=== PATIENT | male | born 1950 | race Caucasian/White ===

== ENCOUNTER 2019-01-03 12:30 | Emergency (ER) | payer MEDICARE ==
[~2019-01-03] VITALS: Ht 193 cm; Wt 74.5 kg
[2019-01-03 13:00] LABS: BASOPHILS # (AUTO) 0.13 x10^3/uL (0-0.1); BASOPHILS % (AUTO) 1 % (0-1); EOSINOPHILS # (AUTO) 0.23 x10^3/uL (0-0.4); EOSINOPHILS % (AUTO) 2 % (1-7); LYMPHOCYTES # (AUTO) 1.19 x10^3/uL (1-3.4); LYMPHOCYTES % (AUTO) 13 % (22-44); MD NO; MEAN CORPUSCULAR HEMOGLOBIN 30.9 pg (27.5-34.5); MEAN CORPUSCULAR HGB CONC 33.8 g/dL (33.2-36.2); MEAN CORPUSCULAR VOLUME 91.2 fL (81-97); MEAN PLATELET VOLUME 8.5 fL (7.4-10.4); MONOCYTES # (AUTO) 0.68 x10^3/uL (0.2-0.8); MONOCYTES % (AUTO) 7 % (2-9); NEUTROPHILS # (AUTO) 7.01 x10^3/uL (1.8-6.8); NEUTROPHILS % (AUTO) 76 % (42-75); PLATELET COUNT 218 x10^3/uL (130-400); RED BLOOD COUNT 4.56 x10^6/uL (4.38-5.82); RED CELL DISTRIBUTION WIDTH 13.8 % (9.4-14.8)
[2019-01-03] MEDS ORDERED: LORazepam 1MG TABLET PO ONE (13:00)
[2019-01-03 13:10] LABS: ANION GAP 8 mmol/L (5-15); CALCIUM 8.9 mg/dL (8.5-10.1); CHLORIDE 106 mmol/L (98-107); CREATININE 1.62 mg/dL (0.7-1.3)
--- NOTE | 2019-01-03 13:27 | NUR ---
CALLED FOR ROOM, NO ANSWER. UNABLE TO LOCATE IN LOBBY.
--- NOTE | 2019-01-03 13:30 | NUR ---
pt room to 25 from [facility]. gait steady.
[2019-01-03] MEDS ORDERED: LORazepam 1MG TABLET ONE (13:34)
--- NOTE | 2019-01-03 13:47 | NUR ---
first contact with pt. pt c/o anxiety since today's morning. pt stopped taking multiple meds about 4-5 days ago due to anxiety. pt aox4. resps even and unlabored. all monitors in place. call light within reach. edmd and pa at bedside to assess at this time.
[2019-01-03] MEDS ORDERED: VALS1TAB22 PO (13:52)
[2019-01-03] MEDS ORDERED: ATEN25TA PO (13:52)
[2019-01-03] MEDS ORDERED: ATOR-2 PO (13:53)
[2019-01-03] MEDS ORDERED: CLOP75TA PO (13:53)
[2019-01-03] MEDS ORDERED: TRAZ-137 PO (13:53)
--- NOTE | 2019-01-03 13:54 | NUR ---
pt medicated per emar for anxiety. pt tolerated well. pt aox4. resps even and unlabored. all monitors in place. call light within reach.
[2019-01-03 14:25] VITALS: BP 162/108
--- NOTE | 2019-01-03 14:29 | NUR ---
pt given dc instructions and script. pt educated regarding dc medication which is ativan. pt aox4. resps even and unlabored. pt's anxiety level reduced at dc. pt amb to dc with steady gait. no acute distress at dc.
== END 2019-01-03 14:27 | disposition home or self-care (01) ==
LOC: ED 13:45
DX: F43.9 Reaction to severe stress, unspecified (principal); F41.9 Anxiety disorder, unspecified; I10 Essential (primary) hypertension; I25.10 Atherosclerotic heart disease of native coronary artery without angina pectoris; F17.200 Nicotine dependence, unspecified, uncomplicated; I51.9 Heart disease, unspecified; Z79.899 Other long term (current) drug therapy
CPT/HCPCS: 36415; 80048; 85025; 93005; 99284

== ENCOUNTER 2019-01-05 22:42 | Emergency (ER) | payer MEDICARE ==
[~2019-01-05] VITALS: Ht 193 cm; Wt 73.8 kg
[~2019-01-05 22:42] MED LIST: ATEN25TA PO; ATOR-2 PO; CLOP75TA PO; TRAZ-137 PO; VALS1TAB22 PO
[2019-01-05 22:43] VITALS: BP 189/92
[2019-01-05] MEDS ORDERED: KETOROLAC 30 MG/1 ML ONE (23:26)
--- NOTE | 2019-01-05 23:28 | NUR ---
PT IN XRAY. DELAY IN MEDICATING
[2019-01-05] MEDS ORDERED: KETOROLAC 30 MG/1 ML IM ONE (23:30)
[2019-01-06 00:03] LABS: CULTURE INDICATED? NO; MICROSCOPIC AUTO
--- NOTE | 2019-01-06 00:33 | NUR ---
DC EDUCATION PROVIDED, PT DEMONSTRATES UNDERSTANDING. PT AMBULATED STEADILY TO DC WITH RN.
== END 2019-01-06 00:34 | disposition home or self-care (01) ==
LOC: ED 23:34
DX: S32.019A Unspecified fracture of first lumbar vertebra, initial encounter for closed fracture (principal); I25.10 Atherosclerotic heart disease of native coronary artery without angina pectoris; F17.200 Nicotine dependence, unspecified, uncomplicated; X58.XXXA Exposure to other specified factors, initial encounter; Y93.89 Activity, other specified; Y92.89 Other specified places as the place of occurrence of the external cause; Y99.8 Other external cause status
CPT/HCPCS: 72110; 81001; 96372; 99284; J1885

== ENCOUNTER 2019-01-09 08:21 | Observation (INO) | payer MEDICARE ==
[~2019-01-09] VITALS: Ht 193 cm; Wt 75.7 kg
[2019-01-09] MEDS ORDERED: SODIUM CHLORIDE FLUSH 10ML SYR IVF ONE (09:00)
[2019-01-09 09:05] LABS: BASOPHILS # (AUTO) 0.08 x10^3/uL (0-0.1); BASOPHILS % (AUTO) 1 % (0-1); EOSINOPHILS # (AUTO) 0.14 x10^3/uL (0-0.4); EOSINOPHILS % (AUTO) 2 % (1-7); LYMPHOCYTES # (AUTO) 0.98 x10^3/uL (1-3.4); LYMPHOCYTES % (AUTO) 11 % (22-44); MD NO; MEAN CORPUSCULAR HEMOGLOBIN 30.1 pg (27.5-34.5); MEAN CORPUSCULAR HGB CONC 33.2 g/dL (33.2-36.2); MEAN CORPUSCULAR VOLUME 90.8 fL (81-97); MEAN PLATELET VOLUME 8.5 fL (7.4-10.4); MONOCYTES # (AUTO) 0.72 x10^3/uL (0.2-0.8); MONOCYTES % (AUTO) 8 % (2-9); NEUTROPHILS # (AUTO) 6.74 x10^3/uL (1.8-6.8); NEUTROPHILS % (AUTO) 78 % (42-75); PLATELET COUNT 231 x10^3/uL (130-400); RED BLOOD COUNT 4.43 x10^6/uL (4.38-5.82); RED CELL DISTRIBUTION WIDTH 13.8 % (9.4-14.8)
--- NOTE | 2019-01-09 09:10 | NUR ---
STORE FACILITY TECHNICIAN: PT AMBUALTED INDEPENDENTLY TO ED ROOM 39 FROM LOBBY IN [facility] AT THIS TIME
--- NOTE | 2019-01-09 09:12 | NUR ---
PT TO ROOM FROM LOBBY, PT CHANGING INTO GOWN.
--- NOTE | 2019-01-09 09:12 | NUR ---
Sumi jewell in EDM - 01/09/19 at 0912 by KAANKSHA JOB FOREMAN: PT AMBUALTED INDEPENDENTLY TO ED ROOM 33 FROM [facility] IN [facility] AT THIS TIME
[2019-01-09 09:16] LABS: ALBUMIN 3.3 g/dL (3.4-5.0); ANION GAP 7 mmol/L (5-15); CALCIUM 9.2 mg/dL (8.5-10.1); CHLORIDE 106 mmol/L (98-107); CREATININE 1.85 mg/dL (0.7-1.3)
--- NOTE | 2019-01-09 09:18 | NUR ---
68 Y/O MALE PRESENTS TO ED WITH C/O CP. "I WAS HERE YESTERDAY AND SUPPOSED TO STAY THE NIGHT. BUT I COULDN'T. I AM ABLE TO STAY TODAY IF I HAVE TO FOR THAT TEST. I'M HAVING MINIMAL CHEST PAIN RIGHT NOW." NO C/O N/V/D, TRAUMA, SYNCOPE, SOB. 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
[2019-01-09 09:19] LABS: TROPONIN I 0.052 ng/mL (0.000-0.045)
--- NOTE | 2019-01-09 10:55 | NUR ---
REPORT GIVEN TO GUILLAUME MCLAIN, ADMITTING MD AT BEDSIDE.
--- NOTE | 2019-01-09 11:09 | NUR ---
PT BEING TRANSFERRED TO FLOOR, PT LEFT WITH ALL PERSONAL BELONGINGS
[2019-01-09] MEDS ORDERED: TRAZODONE 100MG TABLET PO PRN (11:30)
[2019-01-09] MEDS ORDERED: ACETAMINOPHEN 325 MG TABLET PO PRN (11:30)
[2019-01-09] MEDS ORDERED: LABETALOL 5MG/ML, 20ML IVPush PRN (11:30)
[2019-01-09] MEDS ORDERED: DOCUSATE 100 MG CAPSULE PO PRN (11:30)
[2019-01-09] MEDS ORDERED: hydrALAzine 20 MG/ML, 1ML IVPush PRN (11:30)
[2019-01-09] MEDS ORDERED: POLYETHYLENE GLYCOL 17 GM PACKET PO PRN (11:30)
[2019-01-09] MEDS ORDERED: ONDANSETRON 2MG/ML, 2ML IVPush PRN (11:30)
[2019-01-09] MEDS ORDERED: BISACODYL 10 MG SUPP PR PRN (11:30)
[2019-01-09] MEDS ORDERED: NITROGLYCERIN 0.4 MG BOTTLE (25 TABS) SL PRN (11:30)
[2019-01-09] MEDS ORDERED: ONDANSETRON ODT 4 MG PO PRN (11:30)
[2019-01-09] MEDS: HEPARIN 5,000 UNITS/ML, 1ML SQ SCH ×2 (12:13→19:55)
[2019-01-09 12:33] LABS: TROPONIN I 0.052 ng/mL (0.000-0.045)
[2019-01-09 12:49] VITALS: BP 149/92
[2019-01-09 13:51] VITALS: BP 149/78
[2019-01-09 14:57] VITALS: BP 111/76
[2019-01-09 15:20] LABS: TROPONIN I 0.056 ng/mL (0.000-0.045)
[2019-01-09 18:38] VITALS: BP 145/86
[2019-01-09] MEDS ORDERED: ATORVASTATIN 80 MG TABLET PO SCH (21:00)
[2019-01-09] MEDS ORDERED: MELATONIN 5 MG TABLET PO PRN (21:30)
[2019-01-10 03:01] VITALS: BP 144/79
[2019-01-10] MEDS: HEPARIN 5,000 UNITS/ML, 1ML SQ SCH ×2 (03:06→11:28)
[2019-01-10 05:09] LABS: BASOPHILS # (AUTO) 0.07 x10^3/uL (0-0.1); BASOPHILS % (AUTO) 1 % (0-1); EOSINOPHILS # (AUTO) 0.17 x10^3/uL (0-0.4); EOSINOPHILS % (AUTO) 2 % (1-7); LYMPHOCYTES # (AUTO) 1.38 x10^3/uL (1-3.4); LYMPHOCYTES % (AUTO) 16 % (22-44); MD NO; MEAN CORPUSCULAR HGB CONC 34.4 g/dL (33.2-36.2); MEAN CORPUSCULAR VOLUME 90.1 fL (81-97); MONOCYTES # (AUTO) 0.76 x10^3/uL (0.2-0.8); MONOCYTES % (AUTO) 9 % (2-9); NEUTROPHILS # (AUTO) 6.02 x10^3/uL (1.8-6.8); NEUTROPHILS % (AUTO) 72 % (42-75); PLATELET COUNT 210 x10^3/uL (130-400); RED BLOOD COUNT 4.28 x10^6/uL (4.38-5.82); RED CELL DISTRIBUTION WIDTH 13.9 % (9.4-14.8)
[2019-01-10 05:23] LABS: CHLORIDE 107 mmol/L (98-107)
[2019-01-10 05:35] LABS: ANION GAP 8 mmol/L (5-15); CALCIUM 8.7 mg/dL (8.5-10.1); CHOL/HDL RATIO 3.3; CHOLESTEROL, TOTAL 133 mg/dL (140-239); CREATININE 1.65 mg/dL (0.7-1.3); HDL CHOL % 30 % (26-37); HDL CHOLESTEROL (DIRECT) 40 mg/dL (40-60); LDL CHOLESTEROL,CALCULATED 79 mg/dL (54-169); TRIGLYCERIDES 68 mg/dL (50-200); VLDL CHOLESTEROL 14 mg/dL (0-25)
[2019-01-10] MEDS ORDERED: ASPIRIN 325 MG TABLET EC PO SCH (06:00)
[2019-01-10 08:11] VITALS: BP 172/94
[2019-01-10] MEDS ORDERED: VALSARTAN 80 MG TABLET PO SCH (09:00)
[2019-01-10] MEDS ORDERED: CLOPIDOGREL 75 MG TABLET PO SCH (09:00)
[2019-01-10] MEDS ORDERED: HYDROCHLOROTHIAZIDE 12.5 MG CAPSULE PO SCH (09:00)
[2019-01-10] MEDS ORDERED: ATENOLOL 25 MG TABLET PO SCH (09:00)
[2019-01-10] MEDS ORDERED: REGADENOSON 0.4 MG/5 ML SYRINGE ONE (09:29)
[2019-01-10] MEDS ORDERED: CARVEDILOL 12.5 MG TABLET PO SCH (09:30)
[2019-01-10] MEDS ORDERED: FUROSEMIDE 40 MG/4 ML IV SCH (11:30)
[2019-01-10] MEDS ORDERED: CARV12.543 PO (12:56)
[2019-01-10] MEDS ORDERED: FURO-92 PO (12:56)
[2019-01-10] MEDS ORDERED: POTA10TA11 PO (12:56)
[2019-01-10] MEDS ORDERED: VALS80TA30 PO (12:56)
[2019-01-10 13:45] VITALS: BP 148/76
== END 2019-01-10 14:13 | disposition home or self-care (01) ==
LOC: ED 09:22 → INTOOBSV 09:59 → EDIP 09:59 → 5SO 11:12
PROVIDERS: ADMIT Hospitalist; ATTEND Hospitalist
DX: R07.89 Other chest pain (principal); R06.00 Dyspnea, unspecified; R00.2 Palpitations; J81.1 Chronic pulmonary edema; I25.10 Atherosclerotic heart disease of native coronary artery without angina pectoris; I13.0 Hypertensive heart and chronic kidney disease with heart failure and stage 1 through stage 4 chronic kidney disease, or unspecified chronic kidney disease; I08.3 Combined rheumatic disorders of mitral, aortic and tricuspid valves; I27.20 Pulmonary hypertension, unspecified; I50.20 Unspecified systolic (congestive) heart failure; I73.9 Peripheral vascular disease, unspecified; J44.9 Chronic obstructive pulmonary disease, unspecified; N18.9 Chronic kidney disease, unspecified; Z87.891 Personal history of nicotine dependence; Z95.1 Presence of aortocoronary bypass graft
CPT/HCPCS: 36415; 71045; 78452; 80048; 80061; 82040; 83735; 83880; 84443; 84484; 85025; 93005; 93017; 93306; 96372; 96374; 99284; A9502; C9898; G0378; J1644; J1940; J2785